=== PATIENT | female | born 1975 | race Caucasian/White ===

== ENCOUNTER 2022-02-12 19:39 | Inpatient (IN) | payer OTHER ==
[2022-02-12 19:45] VITALS: BMI 22.1
[2022-02-12] MEDS ORDERED: ONDANSETRON 4 MG/2 ML VIAL IVPUSH ONE (21:05)
[2022-02-12] MEDS ORDERED: ACETAMINOPHEN 1000 MG/100 ML BAG IVPB ONE (21:05)
[2022-02-12] MEDS ORDERED: ACETAMINOPHEN INJECTION 100 ML IVPB ONE (21:12)
[2022-02-12] MEDS ORDERED: ONDANSETRON 4 MG/2 ML VIAL ONE (21:12)
[2022-02-12 21:41] LABS: BASO % 0.5 % (0-2.0); EOS % 0.8 % (0-4.5); HEMATOCRIT 38.6 % (32.4-45.2); HEMOGLOBIN 13.1 GM/dL (10.7-15.3); LYMPH % 8.6 % (8-40); MCH 29.5 pg (25.7-33.7); MCHC 33.8 g/dl (32.0-36.0); MEAN CELL VOLUME 87.1 fl (80-96); MEAN PLT VOLUME 8.6 fl (7.5-11.1); MONO % 8.9 % (3.8-10.2); NEUT % 81.2 % (42.8-82.8); PLATELET COUNT 258 10^3/uL (134-434); RBC 4.44 M/mm3 (3.60-5.2); RDW 13.1 % (11.6-15.6); WHITE BLOOD COUNT 10.8 K/mm3 (4.0-10.0)
[2022-02-12 21:43] LABS: EPI CELLS >36 /uL (0-25.1); HYALINE CASTS 2 /uL (0-3.1); PH,URINE 5.5 (5.0-8.0); URINE APPEARANCE CLOUDY; URINE BACTERIA 1450 /uL (0-1359); URINE BILIRUBIN NEGATIVE (NEGATIVE); URINE COLOR YELLOW; URINE GLUCOSE (UA) NEGATIVE (NEGATIVE); URINE KETONE 2+ (NEGATIVE); URINE LEUK ESTERASE NEGATIVE (NEGATIVE); URINE NITRITE NEGATIVE (NEGATIVE); URINE PROTEIN TRACE (NEGATIVE); URINE UROBILINOGEN 0.2 mg/dL (0.2-1.0); URINE WBC 45 /uL (0-25.8)
[2022-02-12 21:44] LABS: URINE RBC 84.8 /uL (0-23.9)
[2022-02-12 21:45] LABS: HCG,QUALITATIVE URINE Negative
[2022-02-12 22:11] LABS: CALCIUM 8.8 mg/dL (8.5-10.1)
[2022-02-12 22:12] LABS: ALBUMIN 3.3 g/dl (3.4-5.0); BLOOD UREA NITROGEN 11.4 mg/dL (7-18)
[2022-02-12 22:15] LABS: CREATININE 1.1 mg/dL (0.55-1.3)
[2022-02-12 22:17] LABS: TOT PROT 7.6 g/dl (6.4-8.2)
[2022-02-13] MEDS ORDERED: CEFTRIAXONE 1,000 MG in DEXTROSE 5%-WATER - 50 ML IVPB ONE (02:55)
[2022-02-13] MEDS ORDERED: KETOROLAC TROMETHAMINE 15 MG/ML VIAL IVPUSH ONE (03:12)
[2022-02-13] MEDS ORDERED: KETOROLAC TROMETHAMINE 15 MG/ML VIAL ONE (03:37)
[2022-02-13] MEDS ORDERED: CEFTRIAXONE 1 GM/50 ML BAG ONE (03:38)
[2022-02-13] MEDS ORDERED: TAMSULOSIN HCL 0.4 MG CAP PO ONE (04:24)
[2022-02-13] MEDS ORDERED: SODIUM CHLORIDE 1,000 ML IV SCH ×3 (04:30→19:13)
[2022-02-13] MEDS ORDERED: KETOROLAC TROMETHAMINE 15 MG/ML VIAL IVPUSH PRN ×2 (04:32→19:13)
[2022-02-13] MEDS ORDERED: ACETAMINOPHEN 1000 MG/100 ML BAG IVPB PRN ×2 (04:33→19:13)
[2022-02-13] MEDS ORDERED: TAMSULOSIN HCL 0.4 MG CAP ONE (05:20)
[2022-02-13] MEDS ORDERED: CEFTRIAXONE 1 GM in DEXTROSE 5%-WATER - 50 ML IVPB SCH (10:00)
[2022-02-13] MEDS ORDERED: ENOXAPARIN NA (PORCINE) 40 MG/0.4 ML DISP.SYRIN SQ SCH (10:00)
[2022-02-13 12:47] LABS: BASO % 0.4 % (0-2.0); EOS % 4.1 % (0-4.5); HEMATOCRIT 38.6 % (32.4-45.2); HEMOGLOBIN 12.7 GM/dL (10.7-15.3); INR 1.17 (0.83-1.09); LYMPH % 16.3 % (8-40); MCH 28.4 pg (25.7-33.7); MCHC 32.8 g/dl (32.0-36.0); MEAN CELL VOLUME 86.4 fl (80-96); MEAN PLT VOLUME 9.8 fl (7.5-11.1); MONO % 8.8 % (3.8-10.2); NEUT % 70.4 % (42.8-82.8); PLATELET COUNT 217 10^3/uL (134-434); PROTHROMBIN TIME (PATIENT) 13.5 SEC (9.7-13.0); RBC 4.47 M/mm3 (3.60-5.2); RDW 12.9 % (11.6-15.6); WHITE BLOOD COUNT 6.4 K/mm3 (4.0-10.0)
[2022-02-13 13:01] LABS: BLOOD UREA NITROGEN 10.3 mg/dL (7-18); CALCIUM 8.2 mg/dL (8.5-10.1); MAGNESIUM 2.1 mg/dL (1.8-2.4)
[2022-02-13 13:04] LABS: CREATININE 0.8 mg/dL (0.55-1.3); PHOSPHOROUS 3.8 mg/dL (2.5-4.9); URIC ACID 3.6 mg/dL (2.6-7.2)
[2022-02-13 13:06] LABS: BILIRUBIN,TOTAL 0.6 mg/dL (0.2-1); TOT PROT 6.5 g/dl (6.4-8.2)
[2022-02-13 16:36] LABS: BASO % 0.3 % (0-2.0); HEMATOCRIT 37.8 % (32.4-45.2); HEMOGLOBIN 12.5 GM/dL (10.7-15.3); LYMPH % 16.1 % (8-40); MCH 28.9 pg (25.7-33.7); MCHC 33.1 g/dl (32.0-36.0); MEAN CELL VOLUME 87.5 fl (80-96); MEAN PLT VOLUME 9.1 fl (7.5-11.1); MONO % 9.1 % (3.8-10.2); NEUT % 70.5 % (42.8-82.8); PLATELET COUNT 204 10^3/uL (134-434); RBC 4.33 M/mm3 (3.60-5.2); RDW 13.5 % (11.6-15.6); WHITE BLOOD COUNT 6.3 K/mm3 (4.0-10.0)
[2022-02-13 16:42] LABS: CALCIUM 8.1 mg/dL (8.5-10.1)
[2022-02-13 16:44] LABS: ALBUMIN 2.8 g/dl (3.4-5.0); BLOOD UREA NITROGEN 10.2 mg/dL (7-18); MAGNESIUM 2.1 mg/dL (1.8-2.4)
[2022-02-13 16:45] LABS: INR 1.15 (0.83-1.09); PROTHROMBIN TIME (PATIENT) 13.3 SEC (9.7-13.0)
[2022-02-13 16:46] LABS: CREATININE 0.7 mg/dL (0.55-1.3)
[2022-02-13 16:48] LABS: TOT PROT 6.1 g/dl (6.4-8.2)
[2022-02-13 16:49] LABS: BILIRUBIN,TOTAL 0.5 mg/dL (0.2-1)
[2022-02-13] MEDS ORDERED: DESFLURANE GAS 240 ML BOTTLE IH ONE (17:17)
[2022-02-13] MEDS ORDERED: ONDANSETRON 4 MG/2 ML VIAL ONE (17:20)
[2022-02-13] MEDS ORDERED: LIDOCAINE HCL/PF 2% SDV 5ML VIAL ONE (17:20)
[2022-02-13] MEDS ORDERED: KETOROLAC TROMETHAMINE 30 MG/1 ML VIAL ONE (17:20)
[2022-02-13] MEDS ORDERED: DEXAMETHASONE SOD PHOSPHATE 4 MG/1 ML VIAL ONE (17:20)
[2022-02-13] MEDS ORDERED: MIDAZOLAM HCL 2 MG/2 ML SINGLE DOSE VIAL ONE (17:21)
[2022-02-13] MEDS ORDERED: PROPOFOL 40 ML ONE (17:21)
[2022-02-13] MEDS ORDERED: ONDANSETRON 4 MG/2 ML VIAL IVPUSH PRN ×2 (17:32→19:13)
[2022-02-13] MEDS ORDERED: LACTATED RINGERS SOLUTION 1,000 ML IV SCH (17:45)
[2022-02-13 22:23] VITALS: RESP 20
[2022-02-14] MEDS ORDERED: TAMSULOSIN HCL 0.4 MG CAP PO SCH (08:30)
[2022-02-14 09:21] LABS: BASO % 0.3 % (0-2.0); EOS % 0.1 % (0-4.5); HEMATOCRIT 37.5 % (32.4-45.2); HEMOGLOBIN 12.2 GM/dL (10.7-15.3); LYMPH % 7.4 % (8-40); MCH 28.1 pg (25.7-33.7); MCHC 32.7 g/dl (32.0-36.0); MEAN CELL VOLUME 86.1 fl (80-96); MEAN PLT VOLUME 9.3 fl (7.5-11.1); MONO % 5.6 % (3.8-10.2); NEUT % 86.6 % (42.8-82.8); PLATELET COUNT 294 10^3/uL (134-434); RBC 4.35 M/mm3 (3.60-5.2); RDW 12.8 % (11.6-15.6); WHITE BLOOD COUNT 9.9 K/mm3 (4.0-10.0)
[2022-02-14 09:28] VITALS: BP 130/61; PULSE 65; TEMP 97.8
[2022-02-14 09:50] LABS: ALBUMIN 2.8 g/dl (3.4-5.0); BLOOD UREA NITROGEN 10.6 mg/dL (7-18); CALCIUM 8.4 mg/dL (8.5-10.1); MAGNESIUM 2.2 mg/dL (1.8-2.4)
[2022-02-14 09:53] LABS: CREATININE 0.6 mg/dL (0.55-1.3)
[2022-02-14 09:55] LABS: BILIRUBIN,TOTAL 0.6 mg/dL (0.2-1); TOT PROT 6.3 g/dl (6.4-8.2)
[2022-02-14] MEDS ORDERED: CEFTRIAXONE 1 GM in DEXTROSE 5%-WATER - 50 ML IVPB SCH (10:00)
[2022-02-14] MEDS ORDERED: ENOXAPARIN NA (PORCINE) 40 MG/0.4 ML DISP.SYRIN SQ SCH (10:00)
[2022-02-14] MEDS ORDERED: PANTOPRAZOLE 40 MG TABLET PO SCH ×2 (10:00)
== END 2022-02-14 11:51 | disposition home or self-care (01) | DRG 661 ==
LOC: JER 19:39 → JERBED 02-13 03:11 → J8W 02-13 08:48
PROVIDERS: ADMIT Internal Medicine; ATTEND Nurse Practitioner Acute Care
PROC: 0T768DZ Dilation of Right Ureter with Intraluminal Device, Via Natural or Artificial Opening Endoscopic (ICD-10-PCS; principal; 2022-02-13 17:30)
PROC: BT1DZZZ Fluoroscopy of Right Kidney, Ureter and Bladder (ICD-10-PCS; 2022-02-13 17:30)
DX: N13.6 Pyonephrosis (principal); R10.9 Unspecified abdominal pain
CPT/HCPCS: 36415; 71045-TC-FY; 74177-TC; 76000-TC-FY; 80053; 81003; 83690; 83735; 84100; 84443; 84550; 84703; 85025; 85610; 87077; 87086; 87186; 93005; 93010; 94760; 99285-25; C2617; C9803-CS; Q9967; U0003; U0005

== ENCOUNTER 2022-03-23 04:21 | Day surgery (SDC) | payer OTHER ==
[2022-03-18 14:50] VITALS: BMI 21.9
[2022-03-23 12:20] VITALS: RESP 18
[2022-03-23] MEDS ORDERED: FENTANYL CITRATE/PF 50 MCG/ML VIAL ONE ×2 (15:05→15:08)
[2022-03-23] MEDS ORDERED: MIDAZOLAM HCL 2 MG/2 ML SINGLE DOSE VIAL ONE (15:05)
[2022-03-23] MEDS ORDERED: LIDOCAINE HCL/PF 2% SDV 5ML VIAL ONE (15:06)
[2022-03-23 16:21] VITALS: BP 138/76; PULSE 50; TEMP 97.8
== END 2022-03-23 16:30 | disposition home or self-care (01) ==
LOC: JASU-SURG 04:21
PROVIDERS: ATTEND Urology
PROC: 0TF3XZZ Fragmentation in Right Kidney Pelvis, External Approach (ICD-10-PCS; principal; 2022-03-23 14:00)
DX: N20.0 Calculus of kidney (principal)
CPT/HCPCS: 81025